=== PATIENT | female | born 1985 | race Caucasian/White ===

== ENCOUNTER 2020-08-20 15:10 | Emergency (ER) | payer MEDICAID, OTHER ==
[~2020-08-20] VITALS: Ht 172.7 cm; Wt 98.9 kg
[2020-08-20 16:14] LABS: Basophils # (auto) 0.1 10 ^3/uL (0-0.2); Basophils % (auto) 1.4 % (0.0-2.0); Eosinophils # (auto) 0.1 10 ^3/uL (0-0.8); Eosinophils % (auto) 1.3 % (0.0-7.0); Hematocrit 37.4 % (36.0-46.0); Lymphocytes % (auto) 21.6 % (10.0-50.0); Mean Corpuscular Hgb Conc. 34.7 g/dL (32.0-36.0); Monocytes # (auto) 0.7 10 ^3/uL (0-1.3); Monocytes % (auto) 8.1 % (0.0-12.0); Neutrophils # (auto) 6.2 10 ^3/uL (1.6-8.6); Neutrophils % (auto) 67.6 % (37.0-80.0); Platelet Count (auto) 371 10^3/uL (140-450); Red Blood Cells 4.79 10^6/uL (4.0-5.20); Red Cell Distribution Width 14.8 % (11.8-14.3); White Blood Cell 9.2 10^3/uL (4.4-10.8)
[2020-08-20 16:39] LABS: Albumin 4.1 g/dL (3.4-5.0); Anion Gap 5 (5-15); Blood Urea Nitrogen 9 mg/dL (7-18); Calcium 8.8 mg/dL (8.5-10.1); Carbon Dioxide 29 mmol/L (21-32); Chloride 104 mmol/L (98-107); Glucose 80 mg/dL (74-106); Magnesium 2.4 mg/dL (1.6-2.6); Potassium 4.3 mmol/L (3.5-5.1); Sodium 138 mmol/L (136-145)
[2020-08-20 16:46] LABS: Alanine Aminotransferase 20 U/L (13-56); Alkaline Phosphatase 86 U/L (45-117); Aspartate Aminotransferase 15 U/L (15-37); Bilirubin, Total 0.3 mg/dL (0.2-1.0); GFR African American 93 mL/min; GFR Non-African American 77 mL/min; Total Protein 7.9 g/dL (6.4-8.2)
[2020-08-20 17:34] VITALS: BP 138/68
== END 2020-08-20 17:37 | disposition home or self-care (01) ==
LOC: ER 15:10
DX: R06.00 Dyspnea, unspecified (principal); R19.7 Diarrhea, unspecified
CPT/HCPCS: 36415; 71045; 80053; 83735; 83880; 84484; 85025; 85049; 85379; 93005